=== PATIENT | male | born 1965 | race Two or more races ===

== ENCOUNTER 2023-03-06 09:15 | Outpatient (OUT) | payer MEDICARE, MEDICAID, SELFPAY ==
--- NOTE | 2023-03-06 10:41 | CA_ITS ---
Patient Name: RENEA PANIAGUA MR#: [id number] : 1965 Exam Date: 03/06/2023 Ordering Doctor: DR LUZ GURROLA M.D. ECHOCARDIOGRAM REPORT PROCEDURE: CA ECHO DOPPLER COMPLETE INDICATIONS: Paroxysmal atrial fibrillation, Chronic CHF COMPARISON: None. DESCRIPTION: COMPLETE ECHOCARDIOGRAM Real-time transthoracic echocardiography with 2D, M-mode, spectral and color flow Doppler performed. QUALITY: Technical quality was good. LEFT VENTRICLE: Normal chamber size. Moderate concentric left ventricular hypertrophy. Global left ventricular systolic function is severely decreased. LV EF: Estimated left ventricular ejection fraction is 25-30% DIASTOLIC: Grade II diastolic dysfunction. ATRIAL SEPTUM: LEFT ATRIUM: Mild dilatation. RIGHT ATRIUM: Mild dilatation. RIGHT VENTRICLE:Normal chamber size. Normal right ventricular systolic function. Pacer wire present. TRICUSPID VALVE: Normal mobility and thickness. No stenosis with mild regurgitation. No evidence of pulmonary hypertension. RVSP 31 mmHg MITRAL VALVE: Normal mobility and thickness. No evidence of mitral valve stenosis. Mild mitral annular calcification. Mild mitral regurgitation. AORTIC VALVE: Normal trileaflet appearance. No visible sclerosis. Normal leaflet mobility. No evidence of aortic valve stenosis. Trivial aortic regurgitation. AORTIC ROOT: Normal diameter and appearance. PULMONIC VALVE: Normal thickness and mobility. No stenosis. Trivial regurgitation. PERICARDIUM: No evidence of pericardial effusion. IVC: Collapses with inspirations. Normal size. PLEURA: CONCLUSION: 1. Moderate concentric left ventricular hypertrophy with severely reduced left ventricular systolic function. LVEF is 25 to 30%. 2. Normal right ventricular size and systolic function. 3. Mild mitral and tricuspid regurgitation. 4. Normal right-sided pressures. 5. No pericardial effusion. Adult Echocardiography Procedure Report Left Ventricle LVEDD (3.7 - 5.6 cm): 4.75 cm LVESD (2.2 - 4.0 cm): 4.03 cm LVIVS thickness (0.6 - 1.2 cm): 1.46 cm LVPW thickness (0.5 - 1.0 cm): 1.37 cm e': 0.09 m/s E - e': 11.70 LVOT Max Gradient: 2.54 mm[Hg] LVOT Area (cm2): 0.80 m/s Peak Velocity (LVOT): 0.80 m/s Mean Velocity (LVOT): 0.51 m/s LVOT Diameter 2.10 cm Left Ventricular Ejection Fraction: 25-30 % Left Atrium LA Volume Index (2D A2C): 78.91 ml/m2 Left Atrium Systolic Dimension: 4.58 cm Mitral Valve MV E to A Ratio: 1.45 Mitral Valve A-Wave Peak Velocity: 0.72 m/s Mitral Valve E-Wave Peak Velocity: 1.05 m/s Right Ventricle RV Internal Diastolic Dimension: 4.49 cm Aorta AO Root Diam: 3.33 cm Ascending Ao Diam: 3.30 cm Aortic Valve AoV Area (Peak Daniel): 2.27 cm2, 2.27 cm2 AoV Area (VTI): 2.37 cm2, 2.37 cm2 Peak Velocity(Antegrade Flow): 1.21 m/s Peak Gradient(Antegrade Flow): 5.86 mm[Hg] Mean Velocity(Antegrade Flow): 0.78 m/s Mean Gradient(Antegrade Flow): 2.83 mm[Hg] Velocity Time Integral: 27.28 cm Tricuspid Valve Peak Velocity (Regurgitant Flow): 2.53 m/s, 2.42 m/s, 2.64 m/s Pulmonic Valve Mean Gradient: 1.12 mm[Hg], 1.25 mm[Hg] Mean Velocity: 0.49 m/s, 0.52 m/s Peak Velocity: 0.73 m/s Peak Gradient: 2.05 mm[Hg], 2.22 mm[Hg] Right Atrium Right Atrium Systolic Pressure: 89.14 ml, 89.14 ml Dictated by: Luz Gurrola M.D. on 03/06/2023 at 17:47 Approved by: Luz Gurrola M.D. on 03/06/2023 at 17:56
== END 2023-03-06 09:16 | disposition home or self-care (01) ==
LOC: CARD 09:16
PROVIDERS: PCP Family Medicine; Visit Provider Internal Medicine Interventional Cardiology
DX: I48.0 Paroxysmal atrial fibrillation (principal); I50.22 Chronic systolic (congestive) heart failure
CPT/HCPCS: 93306; 93356